=== PATIENT | female | born 1960 | race Caucasian/White ===

== ENCOUNTER → 2017-07-02 | Outpatient (CLI) | payer OTHER ==
[~2017-07-02] MED LIST: REGADENOSON 0.4 MG/5 ML DISP.SYRIN. IV ONE
--- NOTE | 2017-07-02 13:27 | RAD ---
MR#: [id number] Date of Study: 07/02/2017 Ordering Physician: MARIA INES STROUD, Referring Physician: VITO BERG Tech: MEILSSA Yoon ARRT (R) (N) APPROVED REPORT Test Type: Pharmacological Stress Nurse/Tech: Tricia Tabares R.N. Test Indications: chest pain Cardiac History: smoker Medications: see ehr Medical History: see ehr Resting ECG: sr see printout Resting Heart Rate: 68 bpm Resting Blood Pressure: 124/68mmHg Pretest Chest Pain: No chest pain Nurse/Tech Notes lungs cta, heart tones regular Consent: The procedure was explained to the patient in lay terms. Informed consent was witnessed. Sai eout was entered into [facility]. History and Stress Test performed by RT Tatianna (R) (N) Pharm. Details Pharmacologic stress testing was performed using 0.4mg per 5ml of regadenoson given intravenously ove r 7-10 seconds. Stress Symptoms No chest pain or symptoms. POST EXERCISE Reason for Termination: Infusion complete Target HR: No Max HR: 89 bpm Max Blood Pressure: 116/58mmHg Chest Pain: No. Arrhythmia: No. ST Change: No. INTERPRETATION Stress EKG Conclusion: Baseline EKG showed sinus rhythm. No ischemic changes at peak stress. No arr hythmias. Imaging Protocol IMAGE PROTOCOL: Rest Tc-99m/stress Tc-99m 1 day Rest: Stress: Viability: Radiopharm.Tc99m CuajrouwhHv51t Sestamibi Dose12.7mCi 34mCi Img Date 07/02/2017 07/02/2017 Inj-Img Ilun08lfi. 60min. Rest Admin Site:IV - Right HandAdministrator:MELISSA Yoon ARRT (R)(N) Stress Admin Site: IV - Right HandAdministrator: RT Sandra Campuzano)(N) STRESS DATA End Diast. Vol.87.0mlAv. Heart Rate78.0bpm End Syst. Vol.13.0mlCO Index BSA0.0L/min Myocardial Izho083.0gEject. Phinnvvs58.0% Stress Rates Pk. Fill Rate3.78EDV/secLVtime Pk. Fill 169.16msec Pk. Empty Rate5.22ESV/secLVtime Pk. Fmqjj714.94msec /3 Pk. Fill1.66EDV/sec Stress Scores Regional WT1.00Summed WT8.00 Regional WM0.00Summed WM0.00 Study quality was good. Left Ventricular size was Normal at Rest and Stress. Lung uptake was Normal. Left Ventricular ejection fraction is 85%. The rest and stress images show normal perfusion, normal contraction and thickening. LV Perf. Quant 17 Seg. SSS0.00 17 Seg. SRS0.00 17 Seg. SDS0.00 Stress Defect Extent (% LAD)0.00Rest Defect Extent (% LAD)0.00Rev. Defect Extent (% LAD)0.00 Stress Defect Extent (% LCX) 0.00Rest Defect Extent (% LCX)0.00Rev. Defect Extent (% LCX)0.00 Stress Defect Extent (% RCA)0.00Rest Defect Extent (% RCA)0.00Rev. Defect Extent (% RCA)0.00 Stress Defect Extent (% JAYNA)0.00Rest Defect Extent (% JAYNA)0.00Rev. Defect Extent (% JAYNA)0.00 Conclusion 1. Regadenoson cardioisotope stress test did not show any evidence of ischemia or infarct. 2. Normal left ventricular systolic function with ejection fraction calculated at 85%. 3. Low risk for cardiac events. Signed by : Julio C Escobar, Electronically Approved : 07/02/2017 13:26:42
== END | disposition home or self-care (01) ==
LOC: NM 07:50
PROVIDERS: ATTEND Internal Medicine Cardiovascular Disease
DX: R07.9 Chest pain, unspecified (principal); Z87.891 Personal history of nicotine dependence
CPT/HCPCS: 78452; 93017; 96374; 96375; 96376; A9500; J2785